=== PATIENT | male | born 1960 | race Caucasian/White ===

== ENCOUNTER → 2017-06-01 | Outpatient (CLI) | payer BC ==
[~2017-06-01] MED LIST: ALBUTEROL2.5 MG/3 M IH; GLUCOPHAGE500 MG PO; LORTAB 10-3251 EACH PO; NEURONTIN300 MG PO; STIOLTO RESPIMAT4 GM IH; VENTOLIN HFA18 GM IH; ZESTRIL20 MG PO; ZOCOR20 MG PO
== END | disposition home or self-care (01) ==
LOC: CDC 10:26
DX: Z01.810 Encounter for preprocedural cardiovascular examination (principal); M51.36 Other intervertebral disc degeneration, lumbar region
CPT/HCPCS: 93000